=== PATIENT | male | born 1985 | race Caucasian/White ===

== ENCOUNTER 2017-06-29 19:46 | Emergency (ER) | payer OTHER ==
[~2017-06-29] VITALS: Ht 193 cm; Wt 100.7 kg
[2017-06-29 21:26] LABS: ALBUMIN 4.8 g/dL (3.2-4.8); CHLORIDE 105 mEq/L (99-109); POTASSIUM 4.1 mEq/L (3.7-5.4); SODIUM 140 mEq/L (136-147)
[2017-06-29 21:28] LABS: GLUCOSE 100 mg/dL (70-99)
[2017-06-29 21:29] LABS: TOTAL PROTEIN 8.4 g/dL (6.4-8.3)
[2017-06-29 21:30] LABS: TOTAL BILIRUBIN 0.4 mg/dL (0.0-1.0)
[2017-06-29 21:31] LABS: HEMATOCRIT 50.1 % (38.0-50.0); HEMOGLOBIN 16.3 G/DL (12.5-16.6); MCH 24.3 PG (29.0-34.0); MCHC 32.5 G/DL (30.0-36.0); MCV 74.8 FL (86-99); PLATELET COUNT 258 K/uL (156-360); RBC DIS.WIDTH-CV 17.3 % (11.8-14.6); RBC DIS.WIDTH-SD 42.6 % (39-53); WHITE BLOOD COUNT 10.7 K/uL (4.1-10.2)
[2017-06-29 21:32] LABS: ALKALINE PHOSPHATASE 89 IU/L (3-129); CREATININE 1.1 mg/dL (0.6-1.3)
[2017-06-29 21:33] LABS: UREA NITROGEN (BUN) 23 mg/dL (9-23)
[2017-06-29 21:34] LABS: AST (GOT) 26 IU/L (2-34)
[2017-06-29 21:35] LABS: ALT (GPT) 24 IU/L (3-49)
[2017-06-29 21:36] LABS: LIPASE 10 U/L (1.0-51.0)
[2017-06-29 21:38] LABS: GFR ESTIMATE (CALCULATED) > 59 mL/min/ (58.99-99999)
[2017-06-29 23:30] LABS: APPEARANCE SL.HAZY ((CLEAR)); BILIRUBIN NEGATIVE; BLOOD MODERATE; COLOR YELLOW ((YELLOW)); GLUCOSE (STRIP) NEGATIVE; KETONES 5; LEUKOCYTES MODERATE; NITRITE POSITIVE; PROTEIN (STRIP) 30; SPECIFIC GRAVITY 1.019 (1.000-1.030); UROBILINOGEN 0.2 MG/DL (0.2-1.0)
[2017-06-29 23:37] LABS: BACTERIA NONE SEEN /HPF; EPITHELIAL CELLS RARE /HPF; MUCUS TRACE /LPF; RED BLOOD CELLS 20-30 /HPF (0-5); UCUL ADDED? YES; WHITE BLOOD CELLS TNTC /HPF (0-5)
[2017-06-30] MEDS ORDERED: PERCOCET 7.51 TABLET PO (00:34)
[2017-06-30] MEDS ORDERED: FLOMAX0.4 MG PO (00:34)
[2017-06-30] MEDS ORDERED: ZOFRAN4 MG PO (00:34)
[2017-06-30 00:49] VITALS: BP 129/73
== END 2017-06-30 00:50 | disposition left against medical advice (07) ==
LOC: EME 19:46
DX: N13.6 Pyonephrosis (principal); Z87.442 Personal history of urinary calculi; F17.200 Nicotine dependence, unspecified, uncomplicated; Z53.20 Procedure and treatment not carried out because of patient's decision for unspecified reasons
CPT/HCPCS: 74176; 80053; 81003; 83690; 85027; 87086; 99281; 99285; J0696; J2270; J2405; J7030